=== PATIENT | female | born 1995 | race Caucasian/White ===

== ENCOUNTER 2019-04-07 18:34 | Emergency (ER) | payer OTHER ==
[~2019-04-07] VITALS: Ht 162.6 cm; Wt 54.4 kg
[2019-04-07 18:40] VITALS: BP 118/78
--- NOTE | 2019-04-07 18:45 | NUR ---
24 Y/O F C/O LOWER ABDOMINAL CRAMPING X1 WEEK. PATIENT STATES SHE IS 5 WEEKS APPROXIMATELY, BASED ON A HOME TEST. PATIENT DENIES VAGINAL BLEEDING, FEVER, N/V. HX: MISCARIAGE X2, LIVE X1
[2019-04-07 19:14] LABS: BASOPHILS % (AUTO) 0.3 % (0.0-2.0); EOSINOPHILS # (AUTO) 0.4 K/uL (0-0.4); EOSINOPHILS % (AUTO) 4.9 % (0.0-4.0); HEMATOCRIT 39.8 % (36-48); HEMOGLOBIN 13.3 g/dL (12.0-16.0); LYMPHOCYTES # (AUTO) 2.1 K/uL (2.5-16.5); MEAN CORPUSCULAR HEMOGLOBIN 29 pg (27-31); MEAN CORPUSCULAR HGB CONC 33 g/dL (33-37); MEAN CORPUSCULAR VOLUME 87.9 fL (80-94); MONOCYTES # (AUTO) 0.5 K/uL (0.8-1.0); MONOCYTES % (AUTO) 5.7 % (1.7-9.3); NEUTROPHILS # (AUTO) 4.9 K/uL (1.8-7.7); NEUTROPHILS % (AUTO) 62.1 % (42.2-75.2); PLATELET COUNT (AUTO) 221 K/uL (140-450); RED BLOOD CELL COUNT(AUTO) 4.52 MIL/uL (4.20-5.40); RED CELL DISTRIBUTION WIDTH 12.5 % (11.6-13.7); WHITE BLOOD COUNT (AUTO) 7.9 K/uL (4.8-10.8)
[2019-04-07 19:15] LABS: APPEARANCE,URINE CLEAR (CLEAR); BILIRUBIN,URINE NEGATIVE (NEGATIVE); BLOOD, URINE NEGATIVE (NEGATIVE); COLOR,URINE YELLOW (YELLOW); LEUKOCYTE ESTERASE ,URINE NEGATIVE (NEGATIVE); NITRITE, URINE NEGATIVE (NEGATIVE); UGLUCOSE NEGATIVE (NEGATIVE)
--- NOTE | 2019-04-07 19:15 | NUR ---
Pt report given to BOB ARITA. Transfer of care at this time.
--- NOTE | 2019-04-07 19:16 | NUR ---
RECEIVED REPORT FROM BOB MAIN. TRANSFER OF CARE AT THIS TIME.
--- NOTE | 2019-04-07 19:30 | NUR ---
Ultrasound at bedside.
--- NOTE | 2019-04-07 21:11 | NUR ---
PT RESTING IN BED WITH EYES CLOSED, VISIBLE RISE AND FALL OF THE CHEST. BOYFRIEND AT BEDSIDE. VSS. WILL CONTINUE TO MONITOR.
--- NOTE | 2019-04-07 21:14 | NUR ---
PT STATES DECREASE IN PAIN. 05/23 ABD PAIN.
[2019-04-07 22:07] VITALS: BP 114/80
--- NOTE | 2019-04-07 22:07 | NUR ---
Patient discharged with v/s stable. Written and verbal after care instructions given and explained. Patient alert, oriented and verbalized understanding of instructions. Ambulatory with steady gait. All questions addressed prior to discharge. ID band removed. Patient advised to follow up with PMD. Rx of [facility] VITAMINS given. Patient educated on indication of medication including possible reaction and side effects. Opportunity to ask questions provided and answered.
== END 2019-04-07 22:07 | disposition home or self-care (01) ==
LOC: MED 18:34
DX: O20.0 Threatened abortion (principal); Z3A.01 Less than 8 weeks gestation of pregnancy
CPT/HCPCS: 36415; 76817; 81003; 84702; 85025; 86900; 86901; 99284; Q0092